=== PATIENT | male | born 1965 | race Caucasian/White ===

== ENCOUNTER → 2025-01-20 12:05 | Outpatient (REF) | payer BC, SELFPAY | LOC: DHSLP 12:05 | PROVIDERS: ATTENDING PHYSICIAN Family Medicine | DX: G47.33 Obstructive sleep apnea (adult) (pediatric) (principal) | CPT/HCPCS: 95800 ==

== ENCOUNTER 2025-06-09 17:19 | Emergency (ER) | payer BC, SELFPAY ==
[2025-06-09] VITALS (12 sets, daily range): BP systolic 139–208; BP diastolic 96–138; BMI 34.4
[2025-06-09 17:37] LABS: Hematocrit 43.7 % (39.0-52.0); Hemoglobin 14.7 g/dL (13.0-18.0); Mean Corp Hgb Conc. 33.6 g/dL (33.0-37.0); Mean Corpuscular Volume 89.7 fL (80.0-94.0); Nucleated Red Blood Cells % 0 % (-); Platelet Count 233 10^3/uL (130-400); Red Cell Dist. Width 13.2 % (11.5-14.5)
[2025-06-09 18:14] LABS: ALT (SGPT) 45 U/L (0-50); AST (SGOT) 32 U/L (17-59); Albumin 4.8 g/dl (3.5-5.0); Alkaline Phosphatase 114 U/L (38-126); Blood Urea Nitrogen 17 mg/dl (9-20); Calcium 9.6 mg/dl (8.4-10.2); Carbon Dioxide 27 mmol/L (22-30); Chloride 102 mmol/L (98-107); Estimated Creatinine Clearance 105 ml/min; Glucose 112 mg/dl (70-99); Potassium 4.4 mmol/L (3.5-5.1); Sodium 138 mmol/L (135-145); Total Protein 8.3 g/dl (6.3-8.2); eGFR > 60.00
[2025-06-09] MEDS: TRANDATE 10 MG IV ×2 (18:27→20:12)
--- NOTE | 2025-06-09 18:31 | ED.GENMED ---
History of Present Illness
General
Chief Complaint: Blood Pressure Problem
Source: patient
Exam Limitations: none
Time Seen by Provider: 06/09/25 17:58
Nursing documentation reviewed up to this point in time: agreed with
History of Present Illness
History of Present Illness:
60 yo male with hx sleep apnea, evaluated and using CPAP, went for follow up visit today and while there it was noted his BP is high. No history HTN. The patient reports a slight headache but denies chest pain, difficulty breathing, changes in
vision, or abdominal pain.
Past History
Past History
ED Past Medical History: Other (Recently diagnosed with sleep apnea and put on CPAP)
ED Past Surgical History: None
Social History
Tobacco: Non-smoker
Alcohol: Occasional
Personal:
Living: with family
Employment: Employed
Review of Systems
Review of Systems
Allergies reviewed?: Yes
All Other Systems: ROS reviewed and negative except as documented in HPI and ROS
Constitutional: Reports fatigue
Respiratory: Denies trouble breathing
Cardiac: Denies chest pain
ABD/GI: Denies abdominal pain
Musculoskeletal: Reports no symptoms
Skin: Reports no symptoms
Neurological: Reports headache ('mild'); Denies dizzy, weakness or numbness
Phy Exam
Physical Exam
Physical Exam:
GENERAL: No acute distress. A&Ox3.
CONSTITUTIONAL: Afebrile.
EYES: clear, conjunctivae normal
ENMT: moist mucus membranes
RESPIRATORY: Regular respirations, nonlabored, lungs clear.
CARDIOVASCULAR: Regular rate and rhythm, no murmurs, no rubs.
GI: Soft, nontender, normal BS
MUSCULOSKELETAL: Moves with ease. Well perfused.
SKIN: Warm, dry, pink
PSYCH: Normal mood and affect. Well kept, interactive and appropriate
NEUROLOGIC: Awake, alert and oriented. No focal neurological deficits
Course
Orders/Labs/Results
Orders:
Orders
06/09/25 17:26
Electrocardiogram (*1) Urgent
Reason for Study: Other
Other Reason for Exam: elevated BP
EKG- Treatment ONCE
06/09/25 17:32
CMP [Comprehensive Metabolic Panel] Urgent
Complete Blood Count/With Diff Urgent
06/09/25 18:09
Labetalol HCl [Trandate] 10 mg IV NOW STA
CR Chest - 2 Views Urgent
Comment:
Reason For Exam: hypertensive urgency
06/09/25 20:06
Labetalol HCl [Trandate] 10 mg IV NOW STA
06/09/25 20:55
Labetalol [Trandate] 100 mg PO NOW STA
Abnormal Lab Results
06/09/25
17:32
Glucose 112 H mg/dl
(70-99)
Total Protein 8.3 H g/dl
(6.3-8.2)
06/09/25 17:32
06/09/25 17:32
Vital Signs
Initial and Last Documented VS:
Initial Vital Signs
Temp Pulse Resp Pulse Ox
98.1 F 90 18 99
06/09/25 17:21 06/09/25 17:21 06/09/25 17:21 06/09/25 17:21
Last Documented Vital Signs
Temp Pulse Resp BP Pulse Ox
98.1 F 70 17 167/105 95
06/09/25 17:21 06/09/25 21:15 06/09/25 20:45 06/09/25 21:15 06/09/25 20:40
MDM/Problems Addressed
Differential Diagnosis Includes:
hypertensive urgency, hypertensive emergency
MDM/Problems Addressed:
60 yo male with hx sleep apnea, evaluated and using CPAP, went for follow up visit today and while there it was noted his BP is high. No history HTN. The patient reports a slight headache but denies chest pain, difficulty breathing, changes in
vision, or abdominal pain.
EKG: NSR
CBC normal
CMP Normal
BP 194/121
7:45 p.m.
CXR NAD
After IV labetalol, blood pressure 158/102
He was advised on the risks of untreated hypertension and is agreeable to starting antihypertensive medication. The patient is willing to monitor his blood pressure at home and follow up with his primary care physician in two weeks for further
evaluation.
8:10 PM: Blood pressure 164/103. Second dose of labetalol 10 mg IV ordered
BP 170/96 manual heart rate 74
60-year-old male with asymptomatic hypertensive urgency. Blood pressure adequately controlled for discharge.
Rx for labetalol 100 mg twice daily sent to his pharmacy
He will follow-up with his PCP Dr. Collado tomorrow
*Pulse Oximetry
SaO2: 98
Oxygen Mode of Delivery: Room air
Patient hypoxic: not evaluated
*Critical Care Note
Total Time (30-74mins, 75-104mins- exclusive of procedures): Not Applicable
ED Attending Note
-
Portions of this chart may have been created with voice recognition software.� Occasional wrong word or��sound alike� substitutions may have occurred due to the inherent limitations of voice recognition software.
Discharge Plan
Departure
Patient Disposition: Home (Routine Discharge)
Date of Disposition: 06/09/25
Time of Disposition: 20:50
Patient with high blood pressure during this ER visit?: Yes
Condition: Fair
Discharge Problem:
Asymptomatic hypertensive urgency
Instructions: High Blood Pressure (DC)
Prescriptions:
New
labetalol 100 mg tablet
100 mg PO BID Qty: 30 0RF
Referrals:
Hay Collado MD [Family Provider, Family Practice] - Call in 1-3 days for appt
Activity Restrictions/Additional Instructions:
As we discussed, I sent a prescription to your pharmacy for labetalol to take 100 mg twice a day.
Call your family doctor tomorrow, inform of today's visit and make a follow-up appointment
Get a blood pressure cuff and take your blood pressure at the same time every day under calm circumstances.
Return here immediately if your blood pressure is high (>180/>100) AND you have symptoms such as headache, change in vision, nausea/vomiting, weakness, numbness, slurred speech.
Interventions
Interventions:
*Risk Screen - Suicide Last Done: 06/09/25 17:21
*General Assessment Last Done: 06/09/25 17:21
*Neglect/Abuse Screening Last Done: 06/09/25 17:59
*ED- Fall Risk Assessment Last Done: 06/09/25 17:59
*ED COVID-19 Vaccine History Last Done: 06/09/25 17:59
*Nursing Disposition Last Done: 06/09/25 21:33
ED- Cardiac Assessment Last Done: 06/09/25 18:00
ED- Neurological Assessment Last Done: 06/09/25 18:00
ED- Pulmonary Assessment Last Done: 06/09/25 18:00
Discharge Date and Time
Discharge Date/Time: 06/09/25 21:34
Print Language: GABONESE
[2025-06-09] MEDS: TRANDATE 100 MG PO (21:15)
== END 2025-06-09 21:34 | disposition home or self-care (01) ==
LOC: EMR 17:19
PROVIDERS: Student in an Organized Health Care Education/Training Program; EMERGENCY PHYSICIAN Emergency Medicine; FAMILY PHYSICIAN Family Medicine
DX: I16.0 Hypertensive urgency (principal); G47.30 Sleep apnea, unspecified
CPT/HCPCS: 96374; 96376; 99284; 71046; 80053; 85025; 93005